=== PATIENT | female | born 1955 | race Caucasian/White ===

== ENCOUNTER → 2020-06-13 | Outpatient (CLI) | payer BC ==
[~2020-06-13] MED LIST: AMLO10TA8 PO; ATOR40TA59 PO; EZET10TA20 PO; HYDR12.59 PO; METF-550 PO
== END | disposition home or self-care (01) ==
LOC: LAB 09:07
PROVIDERS: ATTEND Registered Nurse
DX: Z01.812 Encounter for preprocedural laboratory examination (principal); H25.011 Cortical age-related cataract, right eye; Z20.828 Contact with and (suspected) exposure to other viral communicable diseases
CPT/HCPCS: C9803; U0003; 36415

== ENCOUNTER → 2020-06-17 | Day surgery (SDC) | payer BC ==
[~2020-06-17] MED LIST changes: +BALANCED SALT IRRIG OPHTH SOLN 15 ML BOTTLE. IRR ONE; +CATARACT OPHTH GEL 0.5 ML SYRINGE. OD ONE; +CHONDROIT-SOD-HYALURONATE KIT. OD ONE; +EPINEPHrine AMPULE 0.5 MG in BALANCED SALT IRRIG SOLN PLUS 500 ML IO ONE; +ERYTHROMYCIN 0.5% OPHTH OINTMENT 1GM TUBE. OD ONE; +HYALURONIDASE 75UNITS in LIDOCAINE 2% PF OPHTH 10 ML SYRINGE. OD ONE; +IPRATRPIUM/ALBUTEROL 0.5/2.5MG 3 ML NEBU. NEB PRN; +IV RINGERS SOLUTION,LACTATED 1,000 ML IV SCH; +KETOROLAC TROMETHAMINE 0.5% OPHTH SOLUTION BOTTLE. OD SCH; +KETOROLAC TROMETHAMINE 0.5% OPHTH SOLUTION BOTTLE. ONE; +MIDAZOLAM HCL PF 2 MG/2 ML VIAL. IV ONE; +MOXIFLOXACIN 0.5% OPHTH SOLUTION 3ML BOTTLE. OD SCH; +ONDANSETRON PF 4 MG/2 ML VIAL. IV PRN; +POVIDONE-IODINE 5% OPHTH SOLUTION 30ML BOTTLE. OD ONE; +PROPOFOL 10,000 MCG/ML (20ML) VIAL IV ONE; +TETRACAINE 0.5% OPHTH SOLUTION 4ML BOTTLE. OD ONE; +TETRACAINE 0.5% OPHTH SOLUTION 4ML BOTTLE. OU ONE; +prednisoLONE ACETATE 1% OPHTH SUSPENSION 5ML BOTTLE. OD SCH; +prednisoLONE ACETATE 1% OPHTH SUSPENSION 5ML BOTTLE. ONE
[2020-06-17] MEDS: MOXIFLOXACIN 0.5% OPHTH SOLUTION 3ML BOTTLE. OD SCH ×3 (07:34→07:44)
--- NOTE | 2020-06-17 08:49 | PDOC4 ---
Phaco/Toric IOL/OD Date of Procedure: Jun 17, 2020 Preoperative Diagnosis: 1. Senile Cataract, OD 2. Corneal astigmatism, OD Postoperative Diagnosis: 1. Senile Cataract, OD 2. Corneal astigmatism, OD Anesthesia: Local with monitored anesthesia care Surgeon: Jolanta Phillips D.O. Procedure: Phacoemulsification with toric intraocular lens implant at 90 degrees, OD Findings: 1. Senile Cataract, OD 2. Corneal astigmatism, OD Indications: Worsening vision interfering with patient's lifestyle Narrative: After discussing the risks, complications and alternatives, including but not limited to loss of vision, infection, bleeding, swelling, anesthetic reaction, c apsule rupture with vitreous loss, etc., the patient was given a topical anesthetic in the eye. The eye was then marked at 3, 6 and 9:00 limbus. Periocular anesthesia was given and a [place] balloon was applied for 10 minutes. The patient was transferred to the main operating room and was prepped and draped in the usual sterile fashion and positioned under the microscope. A lid speculum was placed. A temporal clear corneal incision was made with a keratome and viscoelastic was injected into the anterior chamber. A side port incision was made. A 5.5 mm diameter corneal saeid was placed. A continuous tear capsulorrhexis was performed, and hydrodissection was accomplished with balanced salt solution. The phacoemulsification needle was placed in the eye and the nuc leus was emulsified. The remaining cortical material was removed with the irrigation and aspiration apparatus. The capsule was polished as needed. The posterior capsule was noted to be clean and intact. Viscoelastic was injected into the eye inflating the capsular bag. The cornea was marked at the appropriate meridian for toric IOL implantation. An intraocular lens was injected into the eye, unfolding as desired and was positioned in the capsular bag. The viscoelastic was aspirated from the eye and the toric IOL was positioned at the appropriate meridian. The wound edges were hydrated with balanced salt solution and there were no leaks. Viscoelastic was injected over the limbal incisions. Antibiotic and steroids were placed on the eye. The lid speculum was removed and a patch and Cruz shield were applied. There were no complications and the patient was taken to the PACU in good condition. JOLANTA PHILLIPS DO Jun 17, 2020 08:49
[2020-06-17 09:20] VITALS: BP 153/68
== END | disposition home or self-care (01) ==
LOC: SURG 07:05
PROVIDERS: ATTEND Ophthalmology
DX: E11.36 Type 2 diabetes mellitus with diabetic cataract (principal); H25.11 Age-related nuclear cataract, right eye; I10 Essential (primary) hypertension; H52.201 Unspecified astigmatism, right eye; E78.00 Pure hypercholesterolemia, unspecified; K76.0 Fatty (change of) liver, not elsewhere classified; Z98.890 Other specified postprocedural states; Z88.8 Allergy status to other drugs, medicaments and biological substances; Z90.49 Acquired absence of other specified parts of digestive tract; Z88.1 Allergy status to other antibiotic agents; Z79.899 Other long term (current) drug therapy; Z79.84 Long term (current) use of oral hypoglycemic drugs; Z88.6 Allergy status to analgesic agent
CPT/HCPCS: 66984; J0171; J2704; V2787